=== PATIENT | male | born 1970 | race Caucasian/White ===

== ENCOUNTER 2024-03-26 18:15 | Emergency (ER) | payer BC, OTHER ==
[~2024-03-26] VITALS: Ht 177.8 cm; Wt 111.4 kg
[2024-03-26 18:28] VITALS: BP 145/79; PULSE 74; O2SAT 98
[2024-03-26] MEDS: LIDOcaine 1% 30ml preserv. free vial IJ STA (19:56)
[2024-03-26] MEDS: TETanus/Pertussis (Acell)/Diphther VAC/PF (Tdap-Adult) 0.5ml syringe IMVAC ONE (19:57)
[2024-03-26 20:27] VITALS: RESP 18; TEMP 98.8
== END 2024-03-26 20:28 | disposition home or self-care (01) ==
LOC: ER 18:15
DX: S91.311A Laceration without foreign body, right foot, initial encounter (principal); W04.XXXA Fall while being carried or supported by other persons, initial encounter; Y93.89 Activity, other specified; Y92.89 Other specified places as the place of occurrence of the external cause; Y99.8 Other external cause status
CPT/HCPCS: 12001; 90471; 90715; 99283; A6258; A6449